=== PATIENT | female | born 2000 | race Caucasian/White ===

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

== ENCOUNTER 2022-08-16 20:58 | Emergency (ER) | payer MEDICAID ==
[~2022-08-16] VITALS: Ht 165.1 cm; Wt 48.2 kg
[~2022-08-16 20:58] MED LIST changes: -MAGN296S70 PO; +MAGN296S89 PO
[2022-08-16 21:08] VITALS: BP 125/74
== END 2022-08-16 23:35 | disposition left against medical advice (07) ==
LOC: ER 20:58
DX: M54.2 Cervicalgia (principal); Z53.21 Procedure and treatment not carried out due to patient leaving prior to being seen by health care provider